=== PATIENT | female | born 1970 | race Caucasian/White ===

== ENCOUNTER → 2018-10-30 | Outpatient (CLI) | payer OTHER ==
[~2018-10-30] MED LIST: ADVAIR 100-501 EACH; LEVOTHYROXINE112 MCG PO; NORCO 7.5-3251 EACH PO
--- NOTE | 2018-10-30 09:41 | Diagnostic Imaging Report ---
EXAM: Cervical spine radiographs-4 views INDICATION: Postoperative, status post cervical spine. COMPARISON: None FINDINGS: C1-C7 is visualized on the lateral view. Status post anterior fusion of C5-C6 with anterior plate and bilateral screw construct. There is intervertebral spacer at C5-C6. Hardware appears intact. There is minimal anterolisthesis of C2 on C3 and C3 on C4. Alignment is unchanged on flexion and extension views. No evidence of acute fracture. Vertebral height is preserved. There are mild degenerative disc and facet degenerative changes. Prevertebral soft tissues are unremarkable. IMPRESSION: Status post anterior fusion at C5-C6 with intact hardware and no change in alignment on flexion and extension views. Signed by: Dr. Kenyatta Galvez MD on 10/30/2018 9:38 AM
== END ==
LOC: RAD 08:51
PROVIDERS: ATTEND Neurological Surgery
DX: M50.20 Other cervical disc displacement, unspecified cervical region (principal); Z98.1 Arthrodesis status
CPT/HCPCS: 72050

== ENCOUNTER → 2019-03-19 | Outpatient (CLI) | payer OTHER ==
--- NOTE | 2019-03-19 13:44 | Diagnostic Imaging Report ---
EXAM: Cervical spine radiographs-4 views INDICATION: Cervical disc herniation COMPARISON: Multiple prior cervical spine radiographs, most recently of 10/30/2018 FINDINGS: Status post anterior cervical discectomy and fusion of C5-C6. Alignment appears unchanged. Hardware is intact with no evidence of failure. There is grade 1 anterolisthesis of C2 on C3 and C3 on C4. Alignment is unchanged on flexion and extension views. No evidence of acute fracture. Vertebral height is preserved. There are mild degenerative disc and facet degenerative changes. Prevertebral soft tissues are unremarkable. IMPRESSION: Unchanged alignment status post anterior cervical discectomy and fusion at C5-6. Signed by: Prabhjot Fox MD on 03/19/2019 1:41 PM
== END ==
LOC: RAD 12:19
PROVIDERS: ATTEND Neurological Surgery
DX: M50.20 Other cervical disc displacement, unspecified cervical region (principal); M43.22 Fusion of spine, cervical region
CPT/HCPCS: 72050